=== PATIENT | female | born 1960 | race Caucasian/White ===

== ENCOUNTER 2017-01-27 00:20 | Emergency (ER) | payer OTHER ==
[~2017-01-27] VITALS: Ht 157.5 cm; Wt 59.0 kg
[2017-01-27 00:26] VITALS: BP 108/61
--- NOTE | 2017-01-27 00:26 | NUR ---
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 PT REPORTS SHE WAS IN A REHAB X 3 DAYS AND WAS GIVEN MEDS THAT MADE HER HALLUCINATE. PT PACING AND MOANING, AO4, GCS15, VSS, DENIES SOB/CP AT THIS TIME. 68HR EVEN AND REGULAR. 18RR EVEN AND UNLABORED, ALL LUNG SOUNDS CBTA. BS ACTIVE X 4, -TENDERNESS. DENIES PMH/RX/OTC.
[2017-01-27] MEDS ORDERED: LORazepam 2 MG/ML VIAL IVP ONE (00:55)
[2017-01-27] MEDS ORDERED: NACL 0.9% 1,000 ML IV ONE (00:55)
--- NOTE | 2017-01-27 01:20 | NUR ---
PT REPORTS FEELING BETTER, RESTING COMFORTABLY ON BED, DENIES ANY PAIN AT THIS TIME. ALL NEEDS MET.
[2017-01-27 01:25] LABS: EOSINOPHILS # (AUTO) 0.6 K/uL (0-0.4); HEMATOCRIT 44.3 % (36-48); RED BLOOD CELL COUNT(AUTO) 5.15 MIL/uL (4.20-5.40)
[2017-01-27 01:29] LABS: ALBUMIN 3.3 g/dL (3.4-5.0); ANION GAP 12.4 (8-16); CREATININE 0.8 mg/dL (0.6-1.3); POTASSIUM 3.4 mmol/L (3.5-5.1); TOTAL BILIRUBIN 0.2 mg/dL (0.0-1.0)
[2017-01-27 01:30] LABS: BASOPHILS # (AUTO) 0.3 K/uL (0.00-0.22); BASOPHILS % (AUTO) 3.6 % (0.0-2.0); EOSINOPHILS % (AUTO) 6.1 % (0.0-4.0); HEMOGLOBIN 14.5 g/dL (12.0-16.0); LYMPHOCYTES # (AUTO) 2.3 K/uL (2.5-16.5); LYMPHOCYTES % (AUTO) 23.9 % (20.5-51.1); MEAN CORPUSCULAR HEMOGLOBIN 28 pg (27-31); MEAN CORPUSCULAR HGB CONC 33 g/dL (33-37); MEAN CORPUSCULAR VOLUME 86 fL (80-94); MONOCYTES # (AUTO) 0.7 K/uL (0.8-1.0); MONOCYTES % (AUTO) 7.2 % (1.7-9.3); NEUTROPHILS # (AUTO) 5.6 K/uL (1.8-7.7); NEUTROPHILS % (AUTO) 59.2 % (42.2-75.2); PLATELET COUNT (AUTO) 288 K/uL (140-450); RED CELL DISTRIBUTION WIDTH 13.9 % (11.6-13.7); WHITE BLOOD COUNT (AUTO) 9.5 K/uL (4.8-10.8)
--- NOTE | 2017-01-27 02:30 | NUR ---
Patient discharged with v/s stable. Written and verbal after care instructions given and explained. Patient alert, oriented and verbalized understanding of instructions. Ambulatory with steady gait. All questions addressed prior to discharge. ID band removed. Patient advised to follow up with PMD. Rx of XANAX 0.5MG ONE TAB PO 3 TIMES A DAY PRN given. Patient educated on indication of medication including possible reaction and side effects. Opportunity to ask questions provided and answered. IV removed, catheter intact and site benign. Applied folded 4x4 gauze and tape to stop bleeding.
[2017-01-27 02:31] VITALS: BP 114/76
== END 2017-01-27 02:30 | disposition home or self-care (01) ==
LOC: MED 00:20
DX: F11.23 Opioid dependence with withdrawal (principal); F41.9 Anxiety disorder, unspecified
CPT/HCPCS: 36415; 80053; 85025; 96361; 96374; 99284; J2060; J7030